=== PATIENT | male | born 1970 | race Hispanic/Latino ===

== ENCOUNTER 2019-07-24 23:15 | Emergency (ER) | payer OTHER, SELFPAY ==
[2019-07-24 23:25] VITALS: BP 211/107; PULSE 66; RESP 18; TEMP 36.2; O2SAT 97
--- NOTE | 2019-07-25 00:42 | ED.ABDPAIN ---
HPI - Abdominal Pain General Chief Complaint: Abdominal Pain Stated Complaint: constipated since tuesday Time Seen by Provider: 07/25/19 00:42 Source: patient Mode of arrival: Ambulatory Limitations: no limitations History of Present Illness HPI narrative: 49-year-old male comes to the emergency department complaint of constipation patient states that he has not had a bowel movement since Tuesday. He states that he last passed gas earlier this afternoon he states that he did try 3 doses of Dulcolax and 1 dose of MiraLax and had a very small amount of liquidy stool but still continues to feel bloated and feels like he needs to have a bowel movement. He has not had fevers. He has not any nausea, no vomiting he states that he has discomfort in his lower abdomen in the middle he denies any issues with urination no frequency, dysuria urgency. Patient has not had any black or bloody stools. He states that the amount of stool he had was very minimal. He denies any other medical issues besides hypertension. He denies any prior abdominal surgeries. He denies any other medical issues. Denies any allergies to medications. Related Data Allergies Allergy/AdvReac Type Severity Reaction Status Date / Time No Known Drug Allergies Allergy Verified 07/25/19 00:05 Review of Systems Review of Systems ROS Unobtainable: All systems reviewed & are unremarkable except as noted in HPI and below Patient History Medical History (Updated 07/25/19 @ 01:46 by Mary Curran DO) Hypertension (Acute) Social History Smoking Status: Current every day smoker Smoking Status: Current every day smoker alcohol intake frequency: a few times a month Substance Use Type: does not use Exam Narrative Exam Narrative: GENERAL: Alert and oriented x three, obese male in mild distress HEENT: Head normocephalic, atraumatic, EOMI, pupils reactive, face symmetric, moist mucous membranes NECK: Supple, full range of motion CARDIOVASCULAR: Regular rate and rhythm without murmurs, rubs or gallops. RESPIRATORY: Breath sounds equal bilaterally, no wheezes rales or rhonchi. ABDOMEN: Soft, nontender, moderately distended but some of this may be secondary to body habitus. Normoactive bowel sounds all 4 quadrants. No guarding or rebound, rigidity, no mass : No CVA tenderness EXTREMITIES: Normal range of motion, no clubbing or edema. Neurovascularly intact NEUROLOGICAL: Cranial nerves II through XII grossly intact. Moving all extremities SKIN: Warm, dry, no petechiae, no rashes or lesions. Initial Vital Signs Initial Vital Signs: Vital Signs Temperature 97.1 F L 07/24/19 23:25 Pulse Rate 66 07/24/19 23:25 Respiratory Rate 18 07/24/19 23:25 Blood Pressure 211/107 H 07/24/19 23:25 Pulse Oximetry 97 07/24/19 23:25 Course Orders Ordered: ED Orders 07/25/19 01:13 XR abdomen min 2V Stat Discontinued Medications Magnesium Citrate (Magnesium Citrate) 300 ml PO NOW ONE Stop: 07/25/19 01:56 Last Admin: 07/25/19 02:31 Dose: 300 ml Documented by: TERENCE Vital Signs Vital signs: Vital Signs - 8 hr 07/24/19 23:25 07/25/19 01:09 07/25/19 02:03 Temperature 97.1 F L Pulse Rate 66 68 60 Respiratory Rate 18 20 20 Blood Pressure 211/107 H Blood Pressure [Left Arm] 189/102 H 210/120 H Pulse Oximetry 97 97 MDM - Abdominal Pain Imaging Data Abdominal x-ray: Attestation: I personally reviewed and interpreted this imaging study as follows: My Impression: mild amount of air. no air fluid levels. no obstructive pattern. MDM Narrative Medical decision making narrative: Patient is hypertensive. Patient states that he does. He is supposed to be taking medications. He is complaining of difficulty with bowel movements. Nonobstructive pattern on x-ray. He does not have any obstructive symptoms. He is not having any symptoms of be consistent with an different cause and constipation at this time. Discussed and will try a course of MiraLax with Dulcolax and magnesium citrate but we did discuss return precautions. Patient feels comfortable with this plan. Discharge Plan Departure Patient Disposition: Home Clinical Impression: Constipation Discharge Date/Time: 07/25/19 02:35 Instructions: Constipation Activity Restrictions/Additional Instructions: Continue with 1 dose of MiraLax daily as well as 1 dose of Dulcolax. Make sure you are drinking plenty of fluids as these medications do not work well unless you are hydrated. Drink 1/2 bottle of the magnesium citrate, weight 3-4 hours if there are no changes drink the other half of the bottle. Return to ER for fevers greater 100.4 F, increasing abdominal pain, persistent vomiting, inability to have a bowel movement or not passing gas, difficulty with urination or other new or concerning symptoms.
[2019-07-25 01:09] VITALS: BP 189/102; PULSE 68; RESP 20
--- NOTE | 2019-07-25 01:13 | DI.RAD.S_ITS ---
PROCEDURE: XR ABDOMEN MIN 2V INDICATIONS: constipation TECHNIQUE: 2 views of the abdomen were acquired. COMPARISON: None. FINDINGS: Surgical changes and devices: None. Bowel: No pneumoperitoneum. The bowel gas pattern is nonobstructive. Moderate amount of fecal matter throughout the colon is seen. Soft tissues: No masses; visualized solid organ contours appear normal in size. No suspicious abdominal calcifications. Bones: No suspicious bony abnormalities. IMPRESSION: Findings consistent with mild to moderate constipation. No gross free air. Dictated by: Christopher Ortega M.D. on 07/25/2019 at 8:35 Approved by: Christopher Ortega M.D. on 07/25/2019 at 8:37
[2019-07-25 02:03] VITALS: BP 210/120; PULSE 60; RESP 20; O2SAT 97
[2019-07-25] MEDS: MAGNESIUM CITRATE 300 ML SOLUTION PO (02:31)
== END 2019-07-25 02:35 | disposition home or self-care (01) ==
PROVIDERS: Emergency Provider Emergency Medicine
DX: K59.00 Constipation, unspecified (principal); I10 Essential (primary) hypertension
CPT/HCPCS: 74019; 99283; 99284

== ENCOUNTER 2019-07-29 14:51 | Observation (INO) | payer OTHER, SELFPAY ==
[2019-07-29 14:58] VITALS: BP 168/89; PULSE 72; RESP 16; TEMP 36.6; O2SAT 97
--- NOTE | 2019-07-29 15:08 | DI.RAD.S_ITS ---
PROCEDURE: XR ACUTE ABDOMEN SERIES INDICATIONS: Abdominal pain, cramping and constipation TECHNIQUE: One view chest and two views of the abdomen were acquired. COMPARISON: [facility], CR, XR ABDOMEN MIN 2V, 07/25/2019, 1:11. FINDINGS: Surgical changes and devices: None. Chest: Mildly increased perihilar interstitial markings are identified. No focal consolidation is evident. No effusion or pneumothorax is evident. Heart size is normal. No pleural effusions. No pneumoperitoneum. Abdomen: No air-filled distended small bowel loops are evident. Air and stool are seen within the colon. No air-fluid levels are appreciated. No suspicious calcifications. Visualized solid organ contours appear normal. Bones: No suspicious bony lesions. Age-appropriate degenerative changes of the mid spine and pelvic joints are present. IMPRESSION: 1. No bowel obstruction. 2. Possible mild pulmonary vascular congestion. Please correlate clinically. Dictated by: Bruno Menon M.D. on 07/29/2019 at 14:25 Approved by: Bruno Menon M.D. on 07/29/2019 at 14:30
--- NOTE | 2019-07-29 15:24 | ED.ABDPAIN ---
HPI - Abdominal Pain General Chief Complaint: Abdominal Pain Stated Complaint: constipation Time Seen by Provider: 07/29/19 14:53 Source: patient Mode of arrival: Ambulatory Limitations: no limitations History of Present Illness HPI narrative: 49-year-old male daily smoker with history of hypertension presents with a chief complaint of ongoing episodes of lower abdominal cramping and constipation. His symptoms started about a week ago in the absence of any dietary or medication change. He denies any known lifestyle change which would contribute. He was seen and evaluated, had x-rays and was encouraged to take magnesium citrate. He took half the bottle and had a large bowel movement and went about his business for few days until his symptoms slowly returned at which point he took another half of the bottle which again worked. He has continued hard stools and crampy lower abdominal pain without provocation, palliation or radiation. He denies any fever chills nor nausea or vomiting. He denies any urinary complaints. He denies any numbness, tingling or weakness MD complaint: abdominal pain Onset (ago): day(s) Pain Consistency: intermittent Severity: moderate Quality: cramping Radiation: none Migration to: no migration Relieving factors: nothing Exacerbating factors: nothing Associated symptoms: constipation Related Data Allergies Allergy/AdvReac Type Severity Reaction Status Date / Time No Known Drug Allergies Allergy Verified 07/25/19 00:05 Review of Systems Constitutional Constitutional: Denies chills, Denies fatigue, Denies fever(s), Denies frequent falls, Denies lethargy and Denies weakness Eyes Eyes: Denies change in vision, Denies eye discharge, Denies irritation and Denies loss of vision ENT Ears, Nose, Mouth, and Throat: Denies change in voice, Denies dizziness, Denies neck pain, Denies sore throat and Denies throat swelling Cardiovascular Cardiovascular: Denies chest pain, Denies irregular heart rhythm, Denies lightheadedness, Denies palpitations, Denies dyspnea, Denies dyspnea on exertion and Denies orthopnea Respiratory Respiratory: Denies cough, Denies dyspnea, Denies dyspnea on exertion and Denies wheezing Gastrointestinal Gastrointestinal: Reports abdominal pain, Denies change in bowel habits, Reports change in stool character, Denies diarrhea, Denies nausea and Denies vomiting Genitourinary Genitourinary: Denies hematuria, Denies flank pain, Denies urinary incontinence and Denies urinary urgency Musculoskeletal Musculoskeletal: Denies back pain, Denies muscle weakness, Denies neck pain, Denies numbness and Denies tingling Integumentary/Breasts Skin/Breast: Denies pruritus, Denies erythema, Denies rash and Denies wounds Neurologic Neurologic: Denies behavioral changes, Denies confusion, Denies dizziness, Denies frequent falls, Denies loss of vision, Denies numbness, Denies tingling and Denies weakness Psychiatric Psychiatric: Denies anxiety, Denies behavioral changes, Denies confusion, Denies depression, Denies homicidal ideation and Denies suicidal ideation Endocrine Endocrine: Denies fatigue, Denies flushing and Denies palpitations Hematologic/Lymphatic Hematologic/Lymphatic: Denies easy bruising Allergic/Immunologic Allergic/Immunologic: Denies urticaria, Denies throat swelling and Denies wheezing Patient History Medical History Hypertension (Acute) Social History Smoking Status: Current every day smoker Smoking Status: Current every day smoker alcohol intake frequency: a few times a month Substance Use Type: does not use Exam Narrative Exam Narrative: GEN: AOx3 and in mild distress EYES: Pupils are equal, round, and reactive to light and accommodation. Extraoccular muscles are intact bilaterally. There is no subconjunctival hemorrhage or exudate. CHEST: Lungs are clear to auscultation bilaterally and free of wheezes, rales, or rhonchi. Heart rate is regular rhythm, there are no murmurs, clicks, rubs, or gallops. There is no chest wall tenderness. ABD: Abdomen is soft and mildly tender in the lower belly. There is no guarding or rebound. Decreased bowel sounds EXT: Full painless ROM of all extremities with no loss of sensation or strength. SKIN: Warm, pink, and dry. No erythema or rash Initial Vital Signs Initial Vital Signs: Vital Signs Temperature 97.8 F 07/29/19 14:58 Pulse Rate 72 07/29/19 14:58 Respiratory Rate 16 07/29/19 14:58 Blood Pressure 168/89 H 07/29/19 14:58 Pulse Oximetry 97 07/29/19 14:58 Course Orders Ordered: ED Orders 07/29/19 15:08 XR acute abdomen series Stat 07/29/19 15:59 Complete Blood Count AUTO DIFF Stat Comprehensive Metabolic Panel Stat 07/29/19 16:52 CT abdomen pelvis w con Stat 07/29/19 18:28 Education, smoking cessation ONGOING 07/29/19 18:45 Complete Blood Count AUTO DIFF DAILY Enoxaparin Sodium (Lovenox) 40 mg SUBCUT DAILY GERTRUDE Sodium Chloride (Normal Saline 0.9%) 1,000 mls @ 125 mls/hr IV CONT GERTRUDE Piperacillin/Tazobactam/Dextrose (Zosyn) 3.375 gm in 50 mls @ 100 mls/hr IV Q8H GERTRUDE Ibuprofen (Advil) 600 mg PO Q6HR GERTRUDE Naloxone HCl (Narcan) 0.2 mg IV Q2MIN PRN PRN Reason: Opiate Reversal Ondansetron HCl (Zofran) 4 mg IV Q8HR PRN PRN Reason: Nausea And Vomiting Oxycodone HCl (Percolone) 5 mg PO Q6HR PRN PRN Reason: Pain, Moderate (4-6) Discontinued Medications Sodium Chloride (Normal Saline 0.9%) 1,000 mls @ 1,000 mls/hr IV BOLUS ONE Stop: 07/29/19 16:50 Last Infusion: 07/29/19 17:03 Dose: 0 mls/hr Documented by: Admin: 07/29/19 16:04 Dose: 1,000 mls/hr Documented by: DARIAN Piperacillin/Tazobactam/Dextrose (Zosyn) 3.375 gm in 50 mls @ 100 mls/hr IV NOW ONE Stop: 07/29/19 18:50 Last Infusion: 07/29/19 18:52 Dose: 0 mls/hr Documented by: Admin: 07/29/19 18:36 Dose: 100 mls/hr Documented by: DARIAN Vital Signs Vital signs: Vital Signs - 8 hr 07/29/19 14:58 07/29/19 17:30 07/29/19 18:30 Temperature 97.8 F Pulse Rate 72 58 L 82 Respiratory Rate 16 Blood Pressure 168/89 H Blood Pressure [Left Arm] 149/85 H 176/96 H Pulse Oximetry 97 96 98 MDM - Abdominal Pain Lab Data Result diagrams: 07/29/19 15:59 07/29/19 15:59 Labs: Lab Results 07/29/19 07/29/19 Range/Units 15:59 15:59 WBC 11.6 H (4.5-11.0) X10^3/uL RBC 5.02 (4.5-5.9) X10^6/uL Hgb 15.4 (13.5-17.5) g/dL Hct 44.4 (41-53) % MCV 88.5 (80-100) fL MCH 30.6 (26-34) PG MCHC 34.6 (30-36) % RDW 13.0 (11.6-14.8) % Plt Count 292 (150-400) X10^3/uL Neut % (Auto) 75.8 H (50-75) % Lymph % (Auto) 11.3 L (25-40) % [place] % (Auto) 9.9 (3-14) % Eos % (Auto) 1.2 L (2-4) % Baso % (Auto) 1.8 (0-2) % Neut # (Auto) 8800 H (8842-3826) /uL Lymph # (Auto) 1300 (9937-1344) /uL [place] # (Auto) 1100 H (0-900) /uL Eos # (Auto) 100 (0-450) /uL Baso # (Auto) 200 H (0-100) /uL Sodium 141 (137-145) mmol/L Potassium 3.5 (3.4-5.1) mmol/L Chloride 105 (98-107) mmol/L Carbon Dioxide 26 (22-32) mmol/L BUN 12 (9-20) mg/dL Creatinine 0.85 (0.66-1.25) mg/dL Estimated GFR > 60.0 (>60) mL/min BUN/Creatinine Ratio 14.1 (6-22) Glucose 121 H (70-100) mg/dL Calcium 8.8 (8.4-10.2) mg/dL Total Bilirubin 0.5 (0.2-1.3) mg/dL AST 31 (17-59) IU/L ALT 40 (<50) IU/L Alkaline Phosphatase 68 (38-126) U/L Total Protein 7.5 (6.3-8.2) g/dL Albumin 3.9 (3.5-5.0) g/dL Globulin 3.6 (1.7-4.1) g/dL Albumin/Globulin Ratio 1.1 (1.0-2.8) Imaging Data Abdominal x-ray: Radiologist's Impression: 6 Cameron Jamison DO Find Patient Imaging - Jarad Cook M 1970 ACTIVITY DATE EXAM STATUS AUTHOR 07/29/19 15:08 [place] [address] XRay Report Signed Patient: Jarad Cook [facility]#: [id number] : 1970Acct:[id number] Age/Sex: 49 / MDate of Service: 07/29/19 Loc: ED Accession Number: [id number] Procedure: XR acute abdomen series Ordering Provider: Cameron Jamison D.O. PROCEDURE: XR ACUTE ABDOMEN SERIES INDICATIONS: Abdominal pain, cramping and constipation TECHNIQUE: One view chest and two views of the abdomen were acquired. COMPARISON: [facility], CR, XR ABDOMEN MIN 2V, 07/25/2019, 1:11. FINDINGS: Surgical changes and devices: None. Chest: Mildly increased perihilar interstitial markings are identified. No focal consolidation is evident. No effusion or pneumothorax is evident. Heart size is normal. No pleural effusions. No pneumoperitoneum. Abdomen: No air-filled distended small bowel loops are evident. Air and stool are seen within the colon. No air-fluid levels are appreciated. No suspicious calcifications. Visualized solid organ contours appear normal. Bones: No suspicious bony lesions. Age-appropriate degenerative changes of the mid spine and pelvic joints are present. IMPRESSION: 1. No bowel obstruction. 2. Possible mild pulmonary vascular congestion. Please correlate clinically. Dictated by: Bruno Menon M.D. on 07/29/2019 at 14:25 Approved by: Bruno Menon M.D. on 07/29/2019 at 14:30 CT scan - abdomen/pelvis: Radiologist's Impression: Chart Viewer Diagnostics DATE TYPE STATUS AUTHOR Hx 07/29/19 16:52 Bruno Menon 07/29/19 15:08 Bruno Menon 07/25/19 01:13 Christopher Ortega Jarad Cook 49, M0 1970 ADM [place], Main ED R04 Search Chart No Data to Display No Data to Display ONSET Today 18:30 Jarad Cook M [address] [address] [address] Scan Report Signed Patient: Jarad Cook [facility]#: [id number] : 1970Acct:[id number] Age/Sex: 49 / MDate of Service: 07/29/19 Loc: ED Accession Number: [id number] Procedure: CT abdomen pelvis w con Ordering Provider: Cameron Jamison D.O. PROCEDURE: CT ABDOMEN PELVIS W CON INDICATIONS: LLQ pain TECHNIQUE: After the administration of oral and intravenous contrast, 5 mm thick sections acquired from the diaphragms to the symphysis. 5 mm thick coronal and sagittal reformats were performed. For radiation dose reduction, the following was used: automated exposure control, adjustment of mA and/or kV according to patient size. COMPARISON: None. FINDINGS: Image quality: Diagnostic. ABDOMEN: Lung bases: Lung bases are clear. Heart size is normal. Solid organs: The liver is noted to be hypodense when compared to the spleen. No definite liver lesions are appreciated. No intrahepatic or extrahepatic biliary dilatation is evident. The gallbladder is somewhat contracted and not adequately evaluated on CT. The pancreas, spleen, and adrenals are within normal limits. The kidneys are normal in size. There is no hydronephrosis or definite renal calculi. Peritoneum and bowel: The stomach and duodenum are unremarkable. The small bowel loops are nondilated. The appendix is well visualized and noted to be normal, which is positioned along the inferolateral lateral aspect of the liver. There is prominent wall thickening involving the sigmoid colon with prominent edema within the adjacent mesentery. There is a small extraluminal fluid collection that contains a small amount of extraluminal air evident within the left lower quadrant, which measures approximately 4.9 x 3.0 x 4.2 cm (image 76, series 2). Nodes and vessels: Borderline prominent lymph nodes are seen within the mesentery and a left lower quadrant. No hernandez lymphadenopathy is evident. Small retroperitoneal lymph nodes are incidentally noted. There is mild aortic atherosclerosis. Aorta and inferior vena cava are normal in caliber. Bones: No acute fracture suspicious osseous lesion is identified. PELVIS: Genitourinary: Bladder wall thickness is normal. The prostate is mildly enlarged. Miscellaneous: No inguinal hernias or adenopathy. A small amount of free fluid is seen within the pelvis. There is a small fluid collection containing air within the left hemipelvis as described above. Bones: No suspicious bony lesions. No acute pelvic fractures are evident. IMPRESSION: 1. Sigmoid diverticulitis. Colonoscopy may be helpful to exclude an underlying mass when the patient's acute symptoms have resolved. 2. Left lower quadrant fluid collection adjacent to the sigmoid colon contains air, which is suggestive of a contained perforation of the sigmoid diverticulitis with probable developing abscess at this location. 3. No complete bowel obstruction. 4. Hepatic steatosis. Dictated by: Bruno Menon M.D. on 07/29/2019 at 16:27 Approved by: Bruno Menon M.D. on 07/29/2019 at 16:32 Discharge Plan Departure Patient Disposition: Admitted As Inpatient Clinical Impression: Diverticulitis of colon with perforation Qualifiers: Diverticulitis bleeding: without bleeding Qualified Code(s): K57.20 - Diverticulitis of large intestine with perforation and abscess without bleeding Discharge Date/Time: 07/29/19 18:56 Admit Date/Time: 07/29/19 18:35 Admit Provider: Alfred Gonsales ED Sign-out Cosign ED Attending Cosignature Attestation: I was immediately available in the department for consultation. This documentation has been reviewed and I agree with assessment and plan. Supervised by Cameron Jamison DO
[2019-07-29] MEDS: SODIUM CHLORIDE 0.9% 1,000 ML 1000 ML IV (16:04)
[2019-07-29 16:08] LABS: Add Manual Diff / Slide Review NO; Basophils Absolute Auto 200 /uL (0-100); Basophils Percent Auto 1.8 % (0-2); Eosinophils Absolute Auto 100 /uL (0-450); Eosinophils Percent Auto 1.2 % (2-4); Hematocrit 44.4 % (41-53); Hemoglobin 15.4 g/dL (13.5-17.5); Lymphocytes Absolute Auto 1300 /uL (1100-4500); Lymphocytes Percent Auto 11.3 % (25-40); Mean Corpuscular HGB Conc 34.6 % (30-36); Mean Corpuscular Hemoglobin 30.6 PG (26-34); Mean Corpuscular Volume 88.5 fL (80-100); Monocytes Absolute Auto 1100 /uL (0-900); Monocytes Percent Auto 9.9 % (3-14); Neutrophils Absolute Auto 8800 /uL (1500-7000); Neutrophils Percent Auto 75.8 % (50-75); Platelet Count 292 X10^3/uL (150-400); Red Blood Cell Count 5.02 X10^6/uL (4.5-5.9); White Blood Cell Count 11.6 X10^3/uL (4.5-11.0)
[2019-07-29 16:21] LABS: Alanine Aminotransferase 40 IU/L (<50); Albumin 3.9 g/dL (3.5-5.0); Albumin Globulin Ratio 1.1 (1.0-2.8); Alkaline Phosphatase 68 U/L (38-126); Aspartate Aminotransferase 31 IU/L (17-59); BUN Creatinine Ratio 14.1 (6-22); Bilirubin Total 0.5 mg/dL (0.2-1.3); Blood Urea Nitrogen 12 mg/dL (9-20); Calcium 8.8 mg/dL (8.4-10.2); Carbon Dioxide 26 mmol/L (22-32); Chloride 105 mmol/L (98-107); Estimated Glomerular Filt Rate > 60.0 mL/min (>60); Globulin 3.6 g/dL (1.7-4.1); Glucose 121 mg/dL (70-100); HEMOLYSIS < 15 (0-50); Potassium 3.5 mmol/L (3.4-5.1); Sodium 141 mmol/L (137-145); Total Protein 7.5 g/dL (6.3-8.2)
--- NOTE | 2019-07-29 16:52 | DI.CT.S_ITS ---
PROCEDURE: CT ABDOMEN PELVIS W CON INDICATIONS: LLQ pain TECHNIQUE: After the administration of oral and intravenous contrast, 5 mm thick sections acquired from the diaphragms to the symphysis. 5 mm thick coronal and sagittal reformats were performed. For radiation dose reduction, the following was used: automated exposure control, adjustment of mA and/or kV according to patient size. COMPARISON: None. FINDINGS: Image quality: Diagnostic. ABDOMEN: Lung bases: Lung bases are clear. Heart size is normal. Solid organs: The liver is noted to be hypodense when compared to the spleen. No definite liver lesions are appreciated. No intrahepatic or extrahepatic biliary dilatation is evident. The gallbladder is somewhat contracted and not adequately evaluated on CT. The pancreas, spleen, and adrenals are within normal limits. The kidneys are normal in size. There is no hydronephrosis or definite renal calculi. Peritoneum and bowel: The stomach and duodenum are unremarkable. The small bowel loops are nondilated. The appendix is well visualized and noted to be normal, which is positioned along the inferolateral lateral aspect of the liver. There is prominent wall thickening involving the sigmoid colon with prominent edema within the adjacent mesentery. There is a small extraluminal fluid collection that contains a small amount of extraluminal air evident within the left lower quadrant, which measures approximately 4.9 x 3.0 x 4.2 cm (image 76, series 2). Nodes and vessels: Borderline prominent lymph nodes are seen within the mesentery and a left lower quadrant. No hernandez lymphadenopathy is evident. Small retroperitoneal lymph nodes are incidentally noted. There is mild aortic atherosclerosis. Aorta and inferior vena cava are normal in caliber. Bones: No acute fracture suspicious osseous lesion is identified. PELVIS: Genitourinary: Bladder wall thickness is normal. The prostate is mildly enlarged. Miscellaneous: No inguinal hernias or adenopathy. A small amount of free fluid is seen within the pelvis. There is a small fluid collection containing air within the left hemipelvis as described above. Bones: No suspicious bony lesions. No acute pelvic fractures are evident. IMPRESSION: 1. Sigmoid diverticulitis. Colonoscopy may be helpful to exclude an underlying mass when the patient's acute symptoms have resolved. 2. Left lower quadrant fluid collection adjacent to the sigmoid colon contains air, which is suggestive of a contained perforation of the sigmoid diverticulitis with probable developing abscess at this location. 3. No complete bowel obstruction. 4. Hepatic steatosis. Dictated by: Bruno Menon M.D. on 07/29/2019 at 16:27 Approved by: Bruno Menon M.D. on 07/29/2019 at 16:32
[2019-07-29 17:30] VITALS: BP 149/85; PULSE 58; O2SAT 96
[2019-07-29 18:28] VITALS: O2SAT 98
[2019-07-29 18:30] VITALS: BP 176/96; PULSE 82; O2SAT 98
[2019-07-29] MEDS: PIPERACILLIN-TAZO 3.375 GM/50 ML FROZ.PIGGY IV (18:36)
[2019-07-29 19:18] VITALS: BMI 20.3
[2019-07-29 19:49] VITALS: BP 155/91; PULSE 58; RESP 18; TEMP 36.6; O2SAT 96
[2019-07-29] MEDS: SODIUM CHLORIDE 0.9% 1,000 ML 125 ML IV (20:28)
--- NOTE | 2019-07-29 21:17 | PC.NURSE ---
Pt arrived @ 1910 from ED Alert/oriented. Lungs clear, SpO2 96% RA Abodomen rounded w/hypo BT noted. IVF of NS infusing via pump into the RFA @ 125cc/hr w/o incidence. Pt to remains NPO at this time. Call light w/in reach. bed alarm on for pt safety. Call appropriately for needs. Continue w/plan of care.
[2019-07-29 23:00] VITALS: BP 142/97; PULSE 60; RESP 16; TEMP 36.1; O2SAT 97
[2019-07-30] VITALS (10 sets, daily range): BP systolic 133–164; BP diastolic 73–105; PULSE 53–58; RESP 16–18; TEMP 36.1–37.2; O2SAT 95–97
[2019-07-30] MEDS: PIPERACILLIN-TAZO 3.375 GM/50 ML FROZ.PIGGY IV ×3 (02:30→18:17)
--- NOTE | 2019-07-30 02:48 | PM.HP.1 ---
History of Present Illness History of Present Illness Date Patient Seen: 07/30/19 Time Patient Seen: 02:53 Chief complaint: constipation Narrative: Jarad is a 49-year-old male admitted with complicated diverticulitis. Presented to the emergency room with abdominal pain removal previously this week was thought to be constipation. He returned today with worsening abdominal pain underwent a CT of the abdomen pelvis which demonstrates sigmoid diverticulosis and associated 5 cm fluid collection. No prior history of diverticulitis or colonoscopy. Admission white blood cell count 11 afebrile vital signs within normal limits. Patient History Medical History Hypertension (Acute) Family & Social History Social History: household members family Prior Living Arrangements House Safety & Behavioral: Feels Safe in Current Yes Environment Been Physically Hurt or No Threatened By a Person Suicidal Ideation Description None Suicide Plan Description No Plan Tobacco & Substance use: Smoking Status Current every day smoker alcohol intake frequency a few times a month Substance Use Type does not use Meds Home Medications and Allergies Allergies Allergy/AdvReac Type Severity Reaction Status Date / Time No Known Drug Allergies Allergy Verified 07/25/19 00:05 Review of Systems Review of Systems Narrative: A 10 point review of systems is negative except as noted in the HPI Exam Vital Signs (past 8 hours): - 07/29/19 19:49 07/29/19 23:00 07/30/19 00:10 Temperature 97.8 F 97.0 F L Pulse Rate 58 L 60 Respiratory Rate 18 16 Blood Pressure 155/91 H 142/97 H Pulse Oximetry 96 97 97 Oxygen Delivery Method Room Air Oxygen Flow Rate 0 Narrative Exam Narrative: General-no acute distress, obese male HEENT-moist mucous membranes, no scleral icterus Neck-supple, no lymphadenopathy Chest- non labored respirations, clear to auscultation bilaterally Cardiac-regular rate no peripheral edema Abdomen-soft, nontender, non distended Extremities-warm, well perfused Neurological-alert and oriented, no focal deficits Objective Labs Result Diagrams: 07/30/19 06:53 07/29/19 15:59 Labs: Laboratory Results - last 24 hr 07/29/19 07/29/19 15:59 15:59 WBC 11.6 H RBC 5.02 Hgb 15.4 Hct 44.4 MCV 88.5 MCH 30.6 MCHC 34.6 RDW 13.0 Plt Count 292 Neut % (Auto) 75.8 H Lymph % (Auto) 11.3 L [place] % (Auto) 9.9 Eos % (Auto) 1.2 L Baso % (Auto) 1.8 Neut # (Auto) 8800 H Lymph # (Auto) 1300 [place] # (Auto) 1100 H Eos # (Auto) 100 Baso # (Auto) 200 H Sodium 141 Potassium 3.5 Chloride 105 Carbon Dioxide 26 BUN 12 Creatinine 0.85 Estimated GFR > 60.0 BUN/Creatinine Ratio 14.1 Glucose 121 H Calcium 8.8 Total Bilirubin 0.5 AST 31 ALT 40 Alkaline Phosphatase 68 Total Protein 7.5 Albumin 3.9 Globulin 3.6 Albumin/Globulin Ratio 1.1 Assessment & Plan Assessment and plan (1) CAD (coronary artery disease): Current visit: Yes Status: Acute (2) Stented coronary artery: Current visit: Yes Status: Acute Assessment & Plan narrative: Jarad is a 49-year-old male admitted with complicated diverticulitis. He has sigmoid diverticulosis with associated 5 cm fluid collection. No peritonitis white blood cell count 11 on admission afebrile, unlikely he will require surgical intervention will likely be able to treat with medical management. I discussed the fluid collection with the radiology and the a conclusion is that the fluid collection is not organized enough to make and draining worthwhile +its close in proximity to the mesentery of the sigmoid colon making it high risk. - IV fluids -clear liquid diet -Zosyn -SCDs and Lovenox for DVT prophylaxis Quality VTE Deep Vein Thrombosis/Pulmonary Embolism Present on Admission: No
[2019-07-30] MEDS: SODIUM CHLORIDE 0.9% 1,000 ML 125 ML IV ×2 (04:39→13:00)
--- NOTE | 2019-07-30 05:52 | PC.NURSE ---
Dr. Gonsales notified pt's. B/P 159/101 & rechecked B/P 148/91. No new order received, will monitor.
[2019-07-30 07:09] LABS: Add Manual Diff / Slide Review NO; Basophils Absolute Auto 100 /uL (0-100); Basophils Percent Auto 0.7 % (0-2); Eosinophils Absolute Auto 300 /uL (0-450); Eosinophils Percent Auto 3.1 % (2-4); Hemoglobin 15.3 g/dL (13.5-17.5); Lymphocytes Absolute Auto 1600 /uL (1100-4500); Lymphocytes Percent Auto 19.3 % (25-40); Mean Corpuscular HGB Conc 34.7 % (30-36); Mean Corpuscular Hemoglobin 30.9 PG (26-34); Monocytes Absolute Auto 800 /uL (0-900); Monocytes Percent Auto 9.2 % (3-14); Neutrophils Absolute Auto 5700 /uL (1500-7000); Neutrophils Percent Auto 67.7 % (50-75); Platelet Count 241 X10^3/uL (150-400); Red Blood Cell Count 4.95 X10^6/uL (4.5-5.9); Red Cell Distribution Width 13.2 % (11.6-14.8); White Blood Cell Count 8.4 X10^3/uL (4.5-11.0)
--- NOTE | 2019-07-30 13:56 | CM.DANOTE ---
DCP assessment: EMR reviewed: patient is a 49 yr old male who was admitted for complications with Diverticulitis. PCP is a provider with the [facility]. Cm/Rn met with patient at the bedside and explained role. Patient was alert and oriented x3 during CM/RN visit. Patient currently lives in a single level home with his Araceli and his two adult children and new born grandchild. Patient states he is independent with all ADLs and drives at baseline. Patient currently on clear liquids and says he feels much better. I: Shelby Plan: D/C home with family when medically stable. Patient stated he will need a work note. CM/RN let patients RN know so she can help to pass the word to the provider. CM will follow to make sure patient get work note prior to D/C Sheryl Campos RN Discharge Planning/Care Management Advanced directive, confirm from FAMILY Start: 07/29/19 19:24 Freq: Q24H Status: Active Protocol: Document 07/29/19 19:24 KMD (Rec: 07/29/19 19:25 KMD [id number]) Advance Directive, confirm on record Time 19:25 Person contacted Pt Copy received No CM Discharge Assessment Start: 07/30/19 13:55 Freq: Status: Active Protocol: Document 07/30/19 13:55 HS (Rec: 07/30/19 13:56 HS [id number]) Discharge Planning Assessment Assigned Raking Machine Operator Sheryl Campos RN DPOA/Assigned Designee Name Araceli Cook () Contact Information [phone] Advance Directives? No History Provided By Patient,Medical Record Has Patient been admitted in last 30 No days? Prior Living Arrangements House Household Members spouse,children Type of transporation used prior to Drives own vehicle admit Independent with ADL's Yes Is patient alert and oriented? Yes Caregiver for Another Yes Barriers to Discharge No Discharge Plan Home Referrals Initiated None needed Whiteboard Updated in Patient Room with Yes name and ext. # of Raking Machine Operator Review Status In Process Next Review Type Continued Stay Review
--- NOTE | 2019-07-30 15:39 | PC.NURSE ---
Addendum entered by Nita López R.N. 07/30/19 15:40: Denied abd pain/discomfort. Denied nausea. Abdomen firm, but WNL for patient per his report. BT+, flatus+. VSS. Denies fever/chills/body aches. IV saline locked per new order. Steady on feet, independent to BR. Able to make needs known and calls appropriately. Light and belongings within reach. Original Note: Shift summary: Alert and oriented X3. Was NPO this morning. Tolerated clear liquids for lunch. Advanced to general diet for dinner.
--- NOTE | 2019-07-30 15:58 | PC.NURSE ---
Addendum entered by Kaycee Arauz R.N. 07/30/19 21:16: Pt up ad preeti in room w/o incidence. HL intact/patent. Denies any discomfort. Elevated B/P at 1999, notified Order for pt routine atenolol received. 2100 B/P 161/97, showing improvement. Call light w/in reach, Call appropriately for needs. Continue w/plan of care. Original Note: Pt resting watching TV. Denies any discomfort or issues @ this time. Lungs clear, SpO2 98% RA HL RAC intact/patent. Up independently in room. Call light w/in reach.
[2019-07-30] MEDS: IBUPROFEN 600 MG TABLET PO ×2 (18:17→23:54)
[2019-07-30] MEDS: SODIUM CHLORIDE 0.9% FLUSH 10 ML IV (19:40)
[2019-07-30] MEDS: atenoloL 50 MG TABLET PO (19:58)
[2019-07-31] VITALS: O2SAT 96
[2019-07-31] MEDS: SODIUM CHLORIDE 0.9% FLUSH 10 ML IV ×2 (02:21→08:59)
[2019-07-31] MEDS: PIPERACILLIN-TAZO 3.375 GM/50 ML FROZ.PIGGY IV (02:21)
[2019-07-31 04:00] VITALS: O2SAT 100
[2019-07-31 06:00] VITALS: BP 164/92; PULSE 58; RESP 16; TEMP 36.6; O2SAT 100
[2019-07-31 06:36] LABS: Add Manual Diff / Slide Review NO; Basophils Absolute Auto 100 /uL (0-100); Basophils Percent Auto 0.9 % (0-2); Eosinophils Absolute Auto 300 /uL (0-450); Eosinophils Percent Auto 4.3 % (2-4); Hematocrit 45.1 % (41-53); Hemoglobin 15.5 g/dL (13.5-17.5); Lymphocytes Absolute Auto 2400 /uL (1100-4500); Mean Corpuscular HGB Conc 34.4 % (30-36); Mean Corpuscular Hemoglobin 30.8 PG (26-34); Mean Corpuscular Volume 89.5 fL (80-100); Monocytes Absolute Auto 500 /uL (0-900); Monocytes Percent Auto 7.9 % (3-14); Neutrophils Absolute Auto 3200 /uL (1500-7000); Neutrophils Percent Auto 49.9 % (50-75); Platelet Count 257 X10^3/uL (150-400); Red Blood Cell Count 5.04 X10^6/uL (4.5-5.9); Red Cell Distribution Width 12.5 % (11.6-14.8); White Blood Cell Count 6.4 X10^3/uL (4.5-11.0)
[2019-07-31 08:23] VITALS: BP 149/93; PULSE 50; RESP 16; TEMP 36.2; O2SAT 96
[2019-07-31] MEDS: atenoloL 50 MG TABLET PO (08:59)
--- NOTE | 2019-07-31 09:09 | PM.DS.1 ---
History of Present Illness History of Present Illness Chief complaint: constipation Narrative: Jarad is a 49-year-old male admitted with complicated diverticulitis. Presented to the emergency room with abdominal pain removal previously this week was thought to be constipation. He returned today with worsening abdominal pain underwent a CT of the abdomen pelvis which demonstrates sigmoid diverticulosis and associated 5 cm fluid collection. No prior history of diverticulitis or colonoscopy. Admission white blood cell count 11 afebrile vital signs within normal limits. Discharge Providers Provider Date of admission: 07/29/19 18:35 Discharge Date: 07/31/19 Discharge provider: Alfred Gonsales MD Summary Hospital Course Discharge Diagnosis: Complicated diverticulitis Hospital Course: Patient was admitted with acute complicated diverticulitis. CT of the abdomen pelvis demonstrated sigmoid diverticulitis with an associated 5 cm fluid collection. Fluid collection was not felt to be organized enough and was in close proximity to the mesentery of the colon and was not amenable to percutaneous drainage. He responded well to IV antibiotic therapy. His diet was gradually reintroduced. He had resolution of his pain, tolerated regular diet remained afebrile with normal white blood cell count. Will discharged on a course of Levaquin and Flagyl for 10 days. Will contact the patient following completion of his antibiotic therapy. If he can be has lingering abdominal pain that will repeat the CT and consider possible drainage at that time. He will need a colonoscopy in approximately 2 months time. Status at Discharge Cognitive/behavioral status at discharge: oriented Exam Vital Signs (past 8 hours): - 07/31/19 04:00 07/31/19 06:00 07/31/19 08:23 Temperature 97.9 F 97.2 F L Pulse Rate 58 L 50 L Respiratory Rate 16 16 Blood Pressure 164/92 H 149/93 H Pulse Oximetry 100 100 96 Oxygen Delivery Method Room Air Oxygen Flow Rate 0 Narrative Exam Narrative: General-no acute distress, well nourished HEENT-moist mucous membranes, no scleral icterus Neck-supple, no lymphadenopathy Chest- non labored respirations, clear to auscultation bilaterally Cardiac-regular rate no peripheral edema Abdomen-soft, nontender, non distended Extremities-warm, well perfused Neurological-alert and oriented, no focal deficits Objective Labs Result Diagrams: 07/31/19 05:55 07/29/19 15:59 Labs: Laboratory Results - last 24 hr 07/31/19 05:55 WBC 6.4 RBC 5.04 Hgb 15.5 Hct 45.1 MCV 89.5 MCH 30.8 MCHC 34.4 RDW 12.5 Plt Count 257 Neut % (Auto) 49.9 L Lymph % (Auto) 37.0 [place] % (Auto) 7.9 Eos % (Auto) 4.3 H Baso % (Auto) 0.9 Neut # (Auto) 3200 Lymph # (Auto) 2400 [place] # (Auto) 500 Eos # (Auto) 300 Baso # (Auto) 100 Discharge Plan Discharge Plan Patient Disposition: Home Discharge comment: please call [facility] to schedule a colonoscopy in 8 weeks time Discharge orders & Medications Prescriptions: New levofloxacin 750 mg tablet 750 mg PO DAILY Qty: 10 RF: 0 metronidazole [Flagyl] 500 mg tablet 500 mg PO TID Qty: 30 RF: 0 Diet/Activity/Treatments Diet: Regular Skin/Wound/Dressing Care Report to your healthcare provider any signs of infection, such as:: chills, fever Visit Report/Discharge Packet Instructions: Diverticulitis, DI for Diverticulitis Discharge Data Attending Provider: Alfred Gonsales Admit Date/Time: 07/29/19 18:35 Quality VTE Deep Vein Thrombosis/Pulmonary Embolism Present on Admission: No
--- NOTE | 2019-07-31 09:27 | CM.DANOTE ---
DCP/continued: Reviewed chart. Order for discharge acknowledged for today. Spoke with RN whom reports no issues related to discharge today. Family expected to peanut picker later today. RN reports that she will put call out to surgeon/Dr. Gonsales for return to work note for patient. P: Home with supportive family today. TIFFANY Pozo
--- NOTE | 2019-07-31 10:15 | PC.NURSE ---
Discharge: IV dc'd intact. Reviewed d/c instructions and new meds thoroughly. He knows to tow picker abx at [facility] and to begin taking today and as directed. Instructed to call Dr Gonsales's office to have them fax a note to his HR dept at work. He will be in contact with MD's office re: follow up. Instructed to call MD with s/sx infection or other concerns that may arise prior to f/u. Verbalized understanding of d/c info and stated no further questions. All belongings sent with patient including clothing, cellphone, mammalogy teacher, etc. Walked out to private vehicle accompanied by nursing staff.
== END 2019-07-31 10:18 | disposition home or self-care (01) ==
LOC: ED 18:22 → AC 07-30 09:11
PROVIDERS: Admitting Provider Surgery; Emergency Provider Emergency Medicine; Referring Provider Emergency Medicine; Visit Provider Surgery
DX: K57.32 Diverticulitis of large intestine without perforation or abscess without bleeding (principal); R10.30 Lower abdominal pain, unspecified; K59.00 Constipation, unspecified; I25.10 Atherosclerotic heart disease of native coronary artery without angina pectoris; Z95.5 Presence of coronary angioplasty implant and graft; F17.210 Nicotine dependence, cigarettes, uncomplicated
CPT/HCPCS: 36415; 74022; 74177; 80053; 85025; 96361; 96365; 96366; 99217; 99219; 99284; 99285; G0378; J2543; Q9967